=== PATIENT | female | born 1980 | race Caucasian/White ===

== ENCOUNTER 2019-11-01 17:15 | Emergency (ER) | payer OTHER ==
[~2019-11-01] VITALS: Ht 154.9 cm; Wt 136.1 kg
[~2019-11-01 17:15] MED LIST: MOTRIN800 MG PO
[2019-11-01] MEDS ORDERED: ROBAXIN-750750 MG PO (20:02)
[2019-11-01] MEDS ORDERED: NAPROXEN500 M1 PO (20:02)
== END 2019-11-01 20:06 | disposition home or self-care (01) ==
LOC: ED 17:15
DX: S16.1XXA Strain of muscle, fascia and tendon at neck level, initial encounter (principal); S20.219A Contusion of unspecified front wall of thorax, initial encounter; T21.12XA Burn of first degree of abdominal wall, initial encounter; Z88.8 Allergy status to other drugs, medicaments and biological substances; V89.2XXA Person injured in unspecified motor-vehicle accident, traffic, initial encounter; Y93.89 Activity, other specified; Y92.89 Other specified places as the place of occurrence of the external cause; Y99.8 Other external cause status